=== PATIENT | female | born 1950 | race Caucasian/White ===

== ENCOUNTER → 2023-07-31 08:49 | Outpatient (REF) | payer MEDICARE, OTHER, SELFPAY | LOC: HWWDC 08:49 | PROVIDERS: ATTENDING PHYSICIAN Obstetrics & Gynecology; FAMILY PHYSICIAN Internal Medicine | DX: Z12.31 Encounter for screening mammogram for malignant neoplasm of breast (principal) | CPT/HCPCS: 77063; 77067 ==

== ENCOUNTER → 2023-12-11 08:24 | Outpatient (REF) | payer MEDICARE, OTHER, SELFPAY | LOC: HWRAD 08:24 | PROVIDERS: ATTENDING PHYSICIAN Obstetrics & Gynecology; FAMILY PHYSICIAN Internal Medicine | DX: Z78.0 Asymptomatic menopausal state (principal) | CPT/HCPCS: 77080 ==

== ENCOUNTER → 2025-02-04 09:19 | Outpatient (REF) | payer MEDICARE, OTHER, SELFPAY | LOC: WDC 09:19 | PROVIDERS: ATTENDING PHYSICIAN Obstetrics & Gynecology; FAMILY PHYSICIAN Internal Medicine | DX: N63.20 Unspecified lump in the left breast, unspecified quadrant (principal); N63.14 Unspecified lump in the right breast, lower inner quadrant; N63.23 Unspecified lump in the left breast, lower outer quadrant | CPT/HCPCS: 76642; 77062; 77066 ==

== ENCOUNTER 2025-03-05 11:33 | Emergency (ER) | payer MEDICARE, OTHER, SELFPAY ==
[2025-03-05 11:40] VITALS: BP 153/117
[2025-03-05 12:30] LABS: Hematocrit 38.4 % (37.0-47.0); Hemoglobin 12.5 g/dL (12.0-16.0); Mean Corp Hgb Conc. 32.6 g/dL (33.0-37.0); Mean Corpuscular Volume 91.0 fL (81.0-99.0); Nucleated Red Blood Cells % 0 %; Platelet Count 246 10^3/uL (130-400); Red Cell Dist. Width 13.4 % (11.5-14.5)
[2025-03-05 12:46] LABS: ALT (SGPT) 52 U/L (0-35); AST (SGOT) 43 U/L (14-36); Albumin 4.7 g/dl (3.5-5.0); Alkaline Phosphatase 81 U/L (38-126); Blood Urea Nitrogen 21 mg/dl (7-17); Calcium 10.7 mg/dl (8.4-10.2); Carbon Dioxide 26 mmol/L (22-30); Chloride 105 mmol/L (98-107); Glucose 108 mg/dl (70-99); Potassium 3.9 mmol/L (3.5-5.1); Sodium 138 mmol/L (135-145); Total Protein 7.0 g/dl (6.3-8.2); eGFR > 60.00
[2025-03-05] MEDS: LOPRESSOR 25 MG PO (12:47)
[2025-03-05] MEDS: LOPRESSOR 5 MG IV ×2 (12:47→13:34)
[2025-03-05 12:49] VITALS: BP 126/108
[2025-03-05 12:54] LABS: APTT 28.4 Sec (23.4-35.0); INR 0.97; PT 13.4 Sec (11.4-14.6)
[2025-03-05 12:57] LABS: Troponin I < 0.012 ng/ml
[2025-03-05 13:00] VITALS: BP 122/93
[2025-03-05 13:31] VITALS: BP 115/100
--- NOTE | 2025-03-05 13:37 | ED.GENMED ---
History of Present Illness
General
Chief Complaint: Cardiac Symptoms
Time Seen by Provider: 03/05/25 12:12
History of Present Illness
History of Present Illness:
74-year-old female with history of hypertension and hypothyroidism presents to the emergency department for evaluation of heart palpitations and exertional dyspnea for the past 2 to 3 weeks. No associated chest pain. Initially felt well despite
the palpitations but over the past few days her dyspnea on exertion worsened. Denies any leg swelling or fevers. No nausea vomiting or diarrhea. On arrival she states 'I am in A-fib'
Past History
Social History
Tobacco: Non-smoker
Employment: Employed
Review of Systems
Review of Systems
Allergies reviewed?: Yes
All Other Systems: ROS reviewed and negative except as documented in HPI and ROS
Phy Exam
Physical Exam
Physical Exam:
GEN: Well appearing, NAD, WDWN
HEENT: Oral mucosa moist, no scleral icterus
Cardiac: Irregular/tachycardic, no murmur
Lung: No respiratory distress, no tachypnea, lungs clear to auscultation
MSK: No gross deformity or injuries, no lower extremity edema
Skin: Good color, no pallor or jaundice, no rashes
Neuro: AO x3, moves all extremities freely
Psych: Calm, cooperative
Course
Orders/Labs/Results
Orders:
Orders
03/05/25 11:43
EKG [Electrocardiogram (*1)] Urgent
Reason for Study: Atrial Fibrillation
EKG- Treatment ONCE
03/05/25 12:24
Complete Blood Count/With Diff Urgent
Comprehensive Metabolic Panel Urgent
PT/INR [Prothrombin Time] Urgent
Is patient on Coumadin/Warfarin?: No
Comment: [email or web address]
PTT Urgent
Troponin I Urgent
03/05/25 12:38
Metoprolol [Lopressor] 25 mg PO NOW STA
Metoprolol [Lopressor] 5 mg IV NOW STA
03/05/25 13:17
Metoprolol [Lopressor] 5 mg IV NOW STA
Abnormal Lab Results
03/05/25
12:24
MCHC 32.6 L g/dL
(33.0-37.0)
BUN 21 H mg/dl
(7-17)
Glucose 108 H mg/dl
(70-99)
Calcium 10.7 H mg/dl
(8.4-10.2)
AST 43 H U/L
(14-36)
ALT 52 H U/L
(0-35)
03/05/25 12:24
03/05/25 12:24
Vital Signs
Initial and Last Documented VS:
Initial Vital Signs
Temp Pulse Resp BP Pulse Ox
98.5 F 144 20 153/117 98
03/05/25 11:40 03/05/25 11:40 03/05/25 11:40 03/05/25 11:40 03/05/25 11:40
Last Documented Vital Signs
Temp Pulse Resp BP Pulse Ox
98.5 F 96 21 111/90 98
03/05/25 11:40 03/05/25 14:15 03/05/25 14:15 03/05/25 14:00 03/05/25 14:15
MDM/Problems Addressed
MDM/Problems Addressed:
Patient found to be in new onset rapid atrial fibrillation. She was given IV and oral beta-blockers with good success. Ambulated in the emergency department with no significant heart rate elevation, she tolerated this well with reported
improvement in her dyspnea on exertion. She has no edema or abnormal lung sounds suspicious for acute CHF. Will start her on beta-blockers and anticoagulation and refer to cardiology as an outpatient, I was able to secure an appointment for her
early next week through the [facility] cardiology office. She is not a cardioversion candidate based on the duration of her symptoms
Comment
Comment:
EKG independently interpreted by me shows a rapid atrial fibrillation at a rate of [address] changes concerning for ischemia
*Pulse Oximetry
SaO2: 98
Oxygen Mode of Delivery: Room air
Patient hypoxic: no
*Critical Care Note
Total Time (30-74mins, 75-104mins- exclusive of procedures): Not Applicable
ED Attending Note
-
Portions of this chart may have been created with voice recognition software.� Occasional wrong word or��sound alike� substitutions may have occurred due to the inherent limitations of voice recognition software.
Discharge Plan
Departure
Patient Disposition: Home (Routine Discharge)
Date of Disposition: 03/05/25
Time of Disposition: 14:22
Patient with high blood pressure during this ER visit?: No
Discharge Problem:
New onset atrial fibrillation
Instructions: How to take anticoagulants safely, Atrial fibrillation (DC)
Prescriptions:
New
metoprolol tartrate 25 mg tablet
25 mg PO BID Qty: 60 0RF
Eliquis 5 mg tablet
5 mg PO BID Qty: 60 0RF
Referrals:
Tommy Thomas MD [Active, Cardiology] - Call in 1-3 days for appt
Alfredo Abraham MD [Family Provider, Internal Medicine]
Activity Restrictions/Additional Instructions:
Call cardiology office in the next day for follow-up appointment
While you are on blood thinners, do not take any utoi-imn-ubymisl anti-inflammatory medicines (ibuprofen, naproxen, aspirin)
If you sustain any traumatic injuries to the head or torso while on blood thinners you need to seek medical attention immediately!
Return to the ER if symptoms worsen
See your primary care physician within the next week for a hospital follow-up
Interventions
Interventions:
*Risk Screen - Suicide Last Done: 03/05/25 11:40
*General Assessment Last Done: 03/05/25 12:06
*Neglect/Abuse Screening Last Done: 03/05/25 11:40
*ED- Fall Risk Assessment Last Done: 03/05/25 12:06
*ED COVID-19 Vaccine History Last Done: 03/05/25 12:06
*Nursing Disposition Last Done: 03/05/25 14:35
ED- Pulmonary Assessment Last Done: 03/05/25 12:06
ED- Cardiac Assessment Last Done: 03/05/25 12:06
Discharge Date and Time
Print Language: BELARUSIAN
[2025-03-05 14:00] VITALS: BP 111/90
== END 2025-03-05 15:06 | disposition home or self-care (01) ==
LOC: EMR 11:33
PROVIDERS: Emergency Medicine; EMERGENCY PHYSICIAN Emergency Medicine; FAMILY PHYSICIAN Internal Medicine
DX: I48.91 Unspecified atrial fibrillation (principal); I10 Essential (primary) hypertension; E03.9 Hypothyroidism, unspecified; Z79.01 Long term (current) use of anticoagulants
CPT/HCPCS: 99284; 96374; 96376; 80053; 84484; 85025; 85610; 85730; 93005

== ENCOUNTER 2025-03-31 07:45 | Day surgery (SDC) | payer MEDICARE, OTHER, SELFPAY ==
[2025-03-31 08:38] VITALS: BMI 24.8
== END 2025-03-31 10:00 | disposition home or self-care (01) ==
LOC: CATH 07:45
PROVIDERS: ATTENDING PHYSICIAN Internal Medicine Cardiovascular Disease; FAMILY PHYSICIAN Internal Medicine; OTHER PHYSICIAN Internal Medicine Cardiovascular Disease
DX: I48.91 Unspecified atrial fibrillation (principal); I45.4 Nonspecific intraventricular block; R06.09 Other forms of dyspnea; I10 Essential (primary) hypertension; Z79.01 Long term (current) use of anticoagulants; Z79.899 Other long term (current) drug therapy; Z79.890 Hormone replacement therapy; E03.9 Hypothyroidism, unspecified
CPT/HCPCS: 92960; 93005

== ENCOUNTER → 2025-04-22 11:00 | Outpatient (REF) | payer MEDICARE, OTHER, SELFPAY | LOC: RCS 11:00 | PROVIDERS: ATTENDING PHYSICIAN Internal Medicine Cardiovascular Disease; FAMILY PHYSICIAN Internal Medicine | DX: I48.91 Unspecified atrial fibrillation (principal) | CPT/HCPCS: 93306 ==

== ENCOUNTER → 2025-05-19 11:15 | Outpatient (REF) | payer MEDICARE, OTHER, SELFPAY | LOC: HWRCS 11:15 | PROVIDERS: ATTENDING PHYSICIAN Internal Medicine Cardiovascular Disease; FAMILY PHYSICIAN Internal Medicine | DX: I48.91 Unspecified atrial fibrillation (principal); R06.09 Other forms of dyspnea; I10 Essential (primary) hypertension | CPT/HCPCS: 78452; 93017; A9500; J2785 ==